=== PATIENT | female | born 2000 | race Two or more races ===

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

== ENCOUNTER 2022-02-02 03:19 | Emergency (ER) | payer MEDICAID, OTHER ==
[~2022-02-02] VITALS: Ht 157.5 cm; Wt 58.0 kg
[2022-02-02 05:05] LABS: Basophils # (auto) 0 10 ^3/uL (0-0.2); Basophils % (auto) 0.3 % (0.0-2.0); Eosinophils # (auto) 0.1 10 ^3/uL (0-0.8); Eosinophils % (auto) 1.9 % (0.0-7.0); Hematocrit 34.9 % (36.0-46.0); Hemoglobin 12.2 g/dL (12.2-16.2); Lymphocytes # (auto) 2.2 10 ^3/uL (0.4-5.4); Lymphocytes % (auto) 34.9 % (10.0-50.0); Mean Corpuscular Hemoglobin 30.1 pg (28.0-32.0); Mean Corpuscular Hgb Conc. 34.8 g/dL (32.0-36.0); Mean Corpuscular Volume 86.4 fL (80.0-100.0); Monocytes # (auto) 0.6 10 ^3/uL (0-1.3); Monocytes % (auto) 9.1 % (0.0-12.0); Neutrophils # (auto) 3.4 10 ^3/uL (1.6-8.6); Neutrophils % (auto) 53.8 % (37.0-80.0); Nucleated Red Blood Cells % 0.1 %; Red Blood Cells 4.04 10^6/uL (4.0-5.20); Red Cell Distribution Width 13.1 % (11.8-14.3); White Blood Cell 6.4 10^3/uL (4.4-10.8)
[2022-02-02 05:38] LABS: Albumin 3.7 g/dL (3.4-5.0); BUN/Creatinine Ratio 16.1; Calcium 8.9 mg/dL (8.5-10.1); Potassium 3.6 mmol/L (3.5-5.1)
[2022-02-02 05:41] LABS: Bilirubin, Total 0.2 mg/dL (0.2-1.0); Total Protein 7.5 g/dL (6.4-8.2)
[2022-02-02 05:45] VITALS: BP 114/77
[2022-02-02] MEDS ORDERED: SODIUM CHLORIDE 0.9% 1,000 ML IV ONE (07:30)
== END 2022-02-02 08:03 | disposition left against medical advice (07) ==
LOC: ER 03:19
DX: O73.1 Retained portions of placenta and membranes, without hemorrhage (principal); R10.2 Pelvic and perineal pain; Z3A.00 Weeks of gestation of pregnancy not specified
CPT/HCPCS: 36415; 80053; 83690; 84702; 85025; 99283; J7030

== ENCOUNTER 2022-09-17 15:14 | Inpatient (IN) | payer MEDICAID ==
[~2022-09-17] VITALS: Ht 160 cm; Wt 56.2 kg
[2022-09-17] MEDS ORDERED: ACCU-CHEK COMFORT CURVE STRIP VI ONE (15:45)
[2022-09-17 15:57] VITALS: PULSE 110; RESP 18; O2SAT 98
[2022-09-17 16:07] LABS: Basophils # (auto) 0 10 ^3/uL (0-0.2); Basophils % (auto) 0.1 % (0.0-2.0); Eosinophils # (auto) 0.1 10 ^3/uL (0-0.8); Eosinophils % (auto) 1.1 % (0.0-7.0); Hematocrit 35.3 % (36.0-46.0); Hemoglobin 11.8 g/dL (12.2-16.2); Lymphocytes # (auto) 1.9 10 ^3/uL (0.4-5.4); Lymphocytes % (auto) 32.6 % (10.0-50.0); Mean Corpuscular Hemoglobin 29.2 pg (28.0-32.0); Mean Corpuscular Hgb Conc. 33.5 g/dL (32.0-36.0); Mean Corpuscular Volume 87.2 fL (80.0-100.0); Monocytes # (auto) 0.4 10 ^3/uL (0-1.3); Monocytes % (auto) 7.2 % (0.0-12.0); Neutrophils # (auto) 3.5 10 ^3/uL (1.6-8.6); Red Blood Cells 4.05 10^6/uL (4.0-5.20); Red Cell Distribution Width 13.6 % (11.8-14.3)
[2022-09-17 16:21] LABS: Albumin 3.5 g/dL (3.4-5.0); Potassium 3.3 mmol/L (3.5-5.1); Salicylate < 1.7 mg/dL (2.8-20.0)
[2022-09-17 16:24] LABS: BUN/Creatinine Ratio 18.9 (10.0-20.0); Bilirubin, Total 0.2 mg/dL (0.2-1.0); Total Protein 7.1 g/dL (6.4-8.2)
[2022-09-17 16:26] LABS: Acetaminophen < 2.0 ug/mL (10-30)
[2022-09-17] MEDS ORDERED: diphenhdrAMINE HCL 50 MG/1 ML VL IV ONE (16:45)
[2022-09-17] MEDS ORDERED: HALOPERIDOL LACTATE 5 MG/ML INJ VIAL IM ONE (16:45)
[2022-09-17] MEDS ORDERED: LORazepam 2MG/ML-1ML VIAL IV ONE (16:45)
[2022-09-17] MEDS ORDERED: LORazepam 2MG/ML-1ML VIAL ONE (16:48)
[2022-09-17] MEDS ORDERED: diphenhdrAMINE HCL 50 MG/1 ML VL ONE (16:48)
[2022-09-17] MEDS ORDERED: HALOPERIDOL LACTATE 5 MG/ML INJ VIAL ONE (16:48)
[2022-09-17 18:07] LABS: Urine Amorphous Crystal FEW /hpf (None Seen); Urine Bacteria FEW /hpf (None Seen); Urine Blood Negative /uL (Negative); Urine Clarity HAZY (Clear); Urine Color Colorless (Yellow); Urine Protein, UAD Negative (Negative); Urine Specific Gravity 1.008 (1.001-1.035); Urine Urobilinogen Normal (Negative); Urine WBC 13 /hpf (0 - 5)
[2022-09-17 18:48] LABS: Alcohol, Urine < 3.0 mg/dL (0-10); Amphetamine Screen, Urine NEGATIVE (NEGATIVE); Barbiturate Scree,Urine NEGATIVE (NEGATIVE); Benzodiazephine Screen, Urine NEGATIVE (NEGATIVE); Cannabinoid Screen, Urine NEGATIVE (NEGATIVE); Cocaine Screen, Urine NEGATIVE (NEGATIVE); Opiate Scree,Urine NEGATIVE (NEGATIVE); Phencyclidine Screen, Urine NEGATIVE (NEGATIVE)
[2022-09-17] MEDS ORDERED: NITROGLYCERIN 0.4 MG SL TAB SL PRN (19:00)
[2022-09-17] MEDS ORDERED: ACETAMINOPHEN 325 MG TAB PO PRN (19:00)
[2022-09-17] MEDS ORDERED: MORPHINE SULFATE INJ 2 MG/ml SYRG IV PRN (19:00)
[2022-09-17] MEDS ORDERED: ONDANSETRON HCL 4 MG/2 ML VIAL IV PRN (19:00)
[2022-09-17] MEDS ORDERED: DOCUSATE SOD 100 MG CAP PO PRN (19:00)
[2022-09-17 19:25] VITALS: PULSE 116; RESP 18; O2SAT 97
[2022-09-17] MEDS ORDERED: LORazepam 2MG/ML-1ML VIAL IV PRN (22:00)
[2022-09-17] MEDS: SODIUM CHLOR 0.9% PF (SALINE LOCK) 10ML VIAL/SYR IV SCH (22:09)
[2022-09-18] MEDS: SODIUM CHLOR 0.9% PF (SALINE LOCK) 10ML VIAL/SYR IV SCH ×3 (05:21→23:22)
[2022-09-18 06:21] LABS: Basophils # (auto) 0 10 ^3/uL (0-0.2); Basophils % (auto) 0.1 % (0.0-2.0); Eosinophils # (auto) 0.1 10 ^3/uL (0-0.8); Hemoglobin 12.9 g/dL (12.2-16.2); Lymphocytes # (auto) 1.3 10 ^3/uL (0.4-5.4); Lymphocytes % (auto) 13.3 % (10.0-50.0); Mean Corpuscular Hemoglobin 29.6 pg (28.0-32.0); Mean Corpuscular Hgb Conc. 34.1 g/dL (32.0-36.0); Mean Corpuscular Volume 86.8 fL (80.0-100.0); Monocytes # (auto) 0.7 10 ^3/uL (0-1.3); Monocytes % (auto) 6.5 % (0.0-12.0); Neutrophils % (auto) 79.1 % (37.0-80.0); Nucleated Red Blood Cells % 0.1 %; Red Blood Cells 4.37 10^6/uL (4.0-5.20); White Blood Cell 10.1 10^3/uL (4.4-10.8)
[2022-09-18 06:38] LABS: Potassium 3.1 mmol/L (3.5-5.1)
[2022-09-18 06:45] LABS: Albumin 3.9 g/dL (3.4-5.0); BUN/Creatinine Ratio 16.3 (10.0-20.0); Bilirubin, Total 0.3 mg/dL (0.2-1.0); Calcium 8.6 mg/dL (8.5-10.1)
[2022-09-18 09:13] VITALS: PULSE 102; RESP 15; O2SAT 96
[2022-09-18] MEDS ORDERED: POTASSIUM EFFERVESENT TAB 25 MEQ PO ONE (14:30)
[2022-09-18 22:07] VITALS: BP 107/67; PULSE 107; RESP 18; TEMP 97.7; O2SAT 97
[2022-09-18 22:09] VITALS: BP 107/67; PULSE 107; RESP 18; TEMP 97.7; O2SAT 97
[2022-09-19 05:15] VITALS: BP 110/70; PULSE 90; RESP 18; TEMP 97.7; O2SAT 97
[2022-09-19] MEDS: SODIUM CHLOR 0.9% PF (SALINE LOCK) 10ML VIAL/SYR IV SCH ×3 (06:10→23:20)
[2022-09-19 08:00] VITALS: BP 120/66; PULSE 115; RESP 17; TEMP 97.7; O2SAT 98
[2022-09-19 09:00] VITALS: BP 120/66; PULSE 115; RESP 17; TEMP 97.7; O2SAT 98
[2022-09-19 17:00] VITALS: BP 110/74; PULSE 96; RESP 16; TEMP 99; O2SAT 96
[2022-09-19 20:00] VITALS: PULSE 85; RESP 18; O2SAT 98
[2022-09-19 22:00] VITALS: BP 104/63; PULSE 85; RESP 18; TEMP 97.9; O2SAT 98
[2022-09-19] MEDS: OLANZapine 5 MG TAB PO SCH (23:17)
[2022-09-20] VITALS (7 sets, daily range): BP systolic 104–121; BP diastolic 61–74; PULSE 82–115; RESP 17–22; TEMP 97.5–98.2; O2SAT 96–100
[2022-09-20] MEDS: SODIUM CHLOR 0.9% PF (SALINE LOCK) 10ML VIAL/SYR IV SCH ×3 (06:57→22:00)
[2022-09-20] MEDS: OLANZapine 5 MG TAB PO SCH (10:05)
[2022-09-21 05:00] VITALS: BP 103/63; PULSE 82; RESP 22; TEMP 98.3; O2SAT 100
[2022-09-21] MEDS: SODIUM CHLOR 0.9% PF (SALINE LOCK) 10ML VIAL/SYR IV SCH ×2 (05:18→14:03)
[2022-09-21 08:00] VITALS: BP 120/66; PULSE 115; RESP 17; RESP 18; TEMP 97.7; O2SAT 98
[2022-09-21 08:58] VITALS: BP 115/67; PULSE 81; RESP 20; TEMP 97.6; O2SAT 95
[2022-09-21] MEDS: OLANZapine 5 MG TAB PO SCH (10:17)
[2022-09-21 13:27] VITALS: BP 126/75; PULSE 79; RESP 18; TEMP 98.4; O2SAT 95
== END 2022-09-21 18:46 | disposition left against medical advice (07) | DRG 817 ==
LOC: ER 15:14 → EDBD 15:14 → TELE 18:50 → WEST WING 09-18 21:30
PROVIDERS: ADMIT Internal Medicine; ATTEND Internal Medicine
DX: T43.592A Poisoning by other antipsychotics and neuroleptics, intentional self-harm, initial encounter (principal); E87.6 Hypokalemia; F20.9 Schizophrenia, unspecified; T65.892A Toxic effect of other specified substances, intentional self-harm, initial encounter; F32.A Depression, unspecified; R45.1 Restlessness and agitation; Z53.29 Procedure and treatment not carried out because of patient's decision for other reasons; Z91.51 Personal history of suicidal behavior; Y92.89 Other specified places as the place of occurrence of the external cause
CPT/HCPCS: 36415; 80053; 80307; 80329; 81001; 84702; 85025; G0378